=== PATIENT | female | born 1995 | race African-American/Black ===

== ENCOUNTER 2016-06-18 09:53 | Emergency (ER) | payer OTHER ==
[~2016-06-18 09:53] MED LIST: SULF1TAB24 PO; TRAM-29 PO
[2016-06-18 10:21] VITALS: BP 98/54
--- NOTE | 2016-06-18 10:57 | RAD ---
Indication congestion and productive cough for one week. PA and lateral views of the chest were obtained. No prior imaging of the chest is available. The heart and pulmonary vessels are normal. The mediastinum has a normal appearance. The lungs are clear. Bony structures appear grossly intact. IMPRESSION: Normal study
[2016-06-18] MEDS ORDERED: PRED50TA PO (11:19)
[2016-06-18] MEDS ORDERED: BENZ100C PO (11:19)
[2016-06-18] MEDS ORDERED: PROAIR RESPICL90 MCG IH (11:19)
--- NOTE | 2016-06-18 11:19 | PHYS DOC ---
Past Medical History Past Medical History: No Pertinent History Past Surgical History: , Tonsillectomy Alcohol Use: None Drug Use: None Adult General Chief Complaint Chief Complaint: COUGH HPI HPI Patient is a 21 year old female with no significant medical history presents today with a productive cough with yellow sputum and nasal congestion for one week. Patient denies any fever. Patient states she believes she has pneumonia because when she had it last time she had similar symptoms. Review of Systems Review of Systems Constitutional: Denies fever or chills [] Eyes: Denies change in visual acuity, redness, or eye pain [] HENT:nasal congestion Respiratory: cough Cardiovascular: No additional information not addressed in HPI [] GI: Denies abdominal pain, nausea, vomiting, bloody stools or diarrhea [] : Denies dysuria or hematuria [] Musculoskeletal: Denies back pain or joint pain [] Integument: Denies rash or skin lesions [] Neurologic: Denies headache, focal weakness or sensory changes [] Endocrine: Denies polyuria or polydipsia [] Allergies Allergies Allergies Coded Allergies Type Severity Reaction Last Updated Verified ibuprofen Allergy Intermediate hives 04/20/16 No Physical Exam Physical Exam Constitutional: Well developed, well nourished, no acute distress, non-toxic appearance. [] HENT: Normocephalic, atraumatic, bilateral external ears normal, oropharynx moist, no oral exudates, nose normal. [] Eyes: PERRLA, EOMI, conjunctiva normal, no discharge. [] Neck: Normal range of motion, no tenderness, supple, no stridor. [] Cardiovascular:Heart rate regular rhythm, no murmur [] Lungs & Thorax: Bilateral breath sounds clear to auscultation [] Abdomen: Bowel sounds normal, soft, no tenderness, no masses, no pulsatile masses. [] Skin: Warm, dry, no erythema, no rash. [] Back: No tenderness, no CVA tenderness. [] Extremities: No tenderness, no cyanosis, no clubbing, ROM intact, no edema. [] Neurologic: Alert and oriented X 3, normal motor function, normal sensory function, no focal deficits noted. [] Psychologic: Affect normal, judgement normal, mood normal. [] Current Patient Data Vital Signs Vital Signs Date Time Temp Pulse Resp B/P Pulse Ox O2 Delivery O2 Flow Rate FiO2 06/18/16 10:21 98.8 59 18 98 Room Air 98.8 EKG EKG [] Radiology/Procedures Radiology/Procedures [] Course & Med Decision Making Course & Med Decision Making Pertinent Labs and Imaging studies reviewed. (See chart for details) Patient is in the ED with cough and nasal congestion for one week. She is concerned she could have pneumonia. Chest x-ray interpreted by radiologist is negative for any acute findings. Patient probably has viral bronchitis. She was discharged with albuterol inhaler, prednisone for 5 days, Zeb Lucio. Instructed to follow-up with her own PCP in one week. Instructed to return to the ED if symptoms worsen. Dragon Disclaimer Dragon Disclaimer This electronic medical record was generated, in whole or in part, using a voice recognition dictation system. Departure Departure Impression: Primary Impression: Acute bronchitis Additional Impression: Acute upper respiratory infection Disposition: HOME, SELF-CARE Condition: STABLE Referrals: NO PCP (PCP) Follow-up with your doctor in one week Patient Instructions: Acute Bronchitis, Upper Respiratory Infection, Adult Additional Instructions: You seen for viral bronchitis and upper respiratory infection. Your chest x-ray is negative for pneumonia. Take the prescribed medicines as needed. Follow-up with your own doctor in a week, come back to the emergency room if symptoms worsen. Scripts Prednisone 50 Mg Tablet1 Tab PO DAILY #5 TAB Prov:URBANO QUESADA APRN 06/18/16 Benzonatate (Tessalon Perle)100 Mg Capsule1 Cap PO TID #30 CAP Prov:URBANO QUESADA APRN 06/18/16 Albuterol Sulfate (Proair Respiclick)90 Mcg Aer.[id number] Puff IH PRN Q6HRS PRN SHORTNESS OF BREATH #1 INHALER Prov:URBANO QUESADA APRN 06/18/16 Problem Qualifiers Primary Impression: Acute bronchitis Bronchitis organism: unspecified organism Qualified Code: J20.9 - Acute bronchitis, unspecified URBANO QUESADA APRN Jun 18, 2016 11:19
== END 2016-06-18 11:32 | disposition home or self-care (01) ==
LOC: ER 09:53
DX: J20.9 Acute bronchitis, unspecified (principal); J06.9 Acute upper respiratory infection, unspecified; Z90.89 Acquired absence of other organs; Z88.8 Allergy status to other drugs, medicaments and biological substances
CPT/HCPCS: 71020; 99284